=== PATIENT | female | born 1990 | race Caucasian/White ===

== ENCOUNTER → 2023-05-24 | Outpatient (CLI) | payer OTHER ==
[2023-05-24 13:56] VITALS: BP 106/69; PULSE 74; RESP 16; TEMP 98.1
--- NOTE | 2023-05-24 14:18 | P.SLEEP ---
History of Present Illness DATE: 05/24/2023 CONSULTATION/NEW PATIENT EVALUATION HISTORY OF PRESENT ILLNESS/SLEEP-WAKE EVALUATION: 32-year-old person had been evaluated in the sleep center for possible obstructive sleep apnea hypopnea syndrome and significant excessive daytime sleepiness. SLEEP SCHEDULE: Usually sleep schedule 1 AM until 9 AM 7 days a week. FALLING ASLEEP: Patient does have problems with falling asleep, has TV set in bedroom. DURING SLEEP: Patient usually sleeps on the side and back position with loud snoring and awakenings from sleep at least 3-4 times with up to 2 episodes of nocturia. Patient has been told that she bites her fingers during the sleep. No history of hypnogogical hallucinations, sleep paralysis, or cataplexy. DURING THE DAY/WAKE STATE: In the morning patient wake up tired, has difficulties to pay attention, falling asleep during the day, has problems with memory, concentration, irritability. Clements sleepiness scale is significantly increased to 14. Patient takes 1 nap at 1:30 PM. PAST MEDICAL HISTORY: Depression, bipolar. PAST SURGICAL HISTORY: None. MEDICATIONS: Suboxone 8 mg twice a day, Lamictal 150 mg twice a day, Depakote 500 mg twice a day, gabapentin, ibuprofen. SOCIAL HISTORY: Please see below FAMILY HISTORY: Snoring and sleep apnea. REVIEW OF SYSTEMS: Snoring, multiple awakenings from sleep sleepiness during the day. No fevers. No double vision. No recent chest pain. No shortness of breath. No abdominal pain. No bleeding episodes. No blood in urine. No seizure episodes. PHYSICAL EXAMINATION: GENERAL: A pleasant patient without any distress. VITAL SIGNS: Please see below. HEENT: PERRLA, EOMI. Evaluation of oropharynx showed tongue protrudes midline, low position of soft palate Mallampati 3. NECK: Supple. No JVD. Thyroid is not palpable. 14 inches in circumference. LUNGS: Clear to percussion and to auscultation. Good air exchange. No wheezing or rhonchi. HEART: S1, S2 regular. No murmurs, gallops or rubs. ABDOMEN: Soft and nontender. Bowel sounds are present. No organomegaly appreciated. EXTREMITIES: No clubbing or cyanosis. MOVIE CRITIC: Awake, alert, and oriented x3. Cranial nerves 2 to 7 intact. There is no fasciculation or atrophy noted. No focal deficits observed. ASSESSMENT: 1. Loud snoring, multiple awakenings from sleep, low position of soft palate Mallampati 3, sleepiness. Obstructive sleep apnea hypopnea syndrome. 2. Significant excessive daytime sleepiness with Clements Sleepiness Scale 14 dictate necessity to include hypersomnia differential diagnosis. 3. History of depression. 4. History of bipolar. PLAN: 1. Polysomnography for evaluation of patient's breathing during sleep. Multiple sleep latency test if sleep study will be negative for obstructive sleep apnea hypopnea syndrome. 2. Following plan after reading sleep study 3. Preferable position during sleep on the side. 4. No driving if patient feels any sleepiness. Patient is aware of civil and criminal liability for unsafe driving. 5. Sleep hygiene with regular sleep time for at least 7.5-8 hours. Thank you very much for referring this patient for consultation. Sincerely, Dustin Arriaga MD, PhD, FAASM. Diplomat of [employer], Sleep Medicine Board by [employer] [facility] [place] Past Medical History Past Medical History: No Reported History History of Any Multi-Drug Resistant Organisms: None Reported Past Surgical History: No Surgical Hx Reported Past Anesthesia/Blood Transfusion Reactions: No Reported Reaction Past Psychological History: Bipolar, Depression Smoking Status: Former smoker Past Alcohol Use History: None Reported Past Drug Use History: None Reported - Past Family History Father Additional Family Medical History / Comment(s): Apnea, snoring Medications and Allergies Home Medications Medication Instructions Recorded Confirmed Type Buprenorphine-Nalox 8-2 mg Tab 05/24/23 History [Suboxone 8-2 mg Tab] Divalproex ER [Depakote ER] 500 mg PO DAILY 05/24/23 05/24/23 History Gabapentin 800 mg PO 05/24/23 History Ibuprofen 800 mg PO Q8H 05/24/23 05/24/23 History lamoTRIgine [LaMICtal] 150 mg PO 05/24/23 History Physical Exam Vitals: Vital Signs Temp Pulse Resp BP Pulse Ox 05/24/23 13:52 98.1 F 74 16 106/69 100 Intake and Output 05/23/23 05/24/23 05/24/23 22:59 06:59 14:59 Other: Weight 63.503 kg Sleep Note - Sleep Data ESS Total: 14 - Sleep Note Sleep Note: Temperature: 98.1 F Pulse Rate: 74 Respiratory Rate: 16 Blood Pressure: 106/69 SpO2: 100 Height: 5 ft 5 in Weight: 63.503 kg BMI: Neck Circumference: 14
== END ==
LOC: 3 N SLEEP 13:25
PROVIDERS: ATTEND Internal Medicine
DX: G47.33 Obstructive sleep apnea (adult) (pediatric) (principal); G47.10 Hypersomnia, unspecified; F31.9 Bipolar disorder, unspecified
CPT/HCPCS: 99202

== ENCOUNTER 2023-07-09 19:50 | Outpatient (CLI) | payer OTHER ==
[2023-07-11 04:16] LABS: Urine Alcohol Negative (Negative); Urine Barbiturate Negative (Negative); Urine Cocaine Negative (Negative); Urine Methadone Negative (Negative); Urine Opiates Negative (Negative); Urine Phencyclidine Negative (Negative)
--- NOTE | 2023-07-11 14:12 | P.PCN ---
Description of Procedure: POLYSOMNOGRAPHY and MSLT REPORT PROCEDURE(S)/DATE(S): Polysomnography 07/09/2023, multiple sleep latency test 07/10/2023 CLINICAL: Patient has been seen in the sleep center for evaluation of obstructive sleep apnea-hypopnea syndrome. Please see my consultation. Sleep study has been done for evaluation of patient breathing during the sleep. PROCEDURE: The standard montage for clinical polysomnography included the electroencephalogram, the electrooculogram, the mentalis surface elect romyography and Lead II cardiography. The respiratory battery consisted of measurements of nasal/buccal air flow, pressure transducer measurements from nose, thoracic and/or abdominal effort and intercostal surface electromyography. Video monitoring has been done to check for any parasomnia events. Nocturnal oxyhemoglobin saturations were obtained by finger oximetry. Step-portillo titration with positive airway pressure was utilized to control the respiratory events, if necessary. RESULTS: During the diagnostic sleep study sleep efficiency was 91.2%. Latency to sleep onset was slightly short 8.5 min. Sleep architecture showed stage NI was short 1.4%, Delta sleep was normal 17.2%, REM sleep was normal IN high range 28.5%. Respiratory channel showed 5 obstructive apneas, 0 mixed apneas, 2 central apneas, 2 hypopneas with lowest oxygen level 92%. Total apnea hypopnea index was 1.3. Heart rate was in the range between 57 and 70, average 62. EMG showed 0 periodic limb movements per hour with 0 micro-arousals per hour. Multiple sleep latency test treatment done on the following day, consisted from 5 naps. Mean sleep latency was 4.6 minutes. IMPRESSIONS: 1. No significant respiratory abnormalities have been documented during the sleep study, normal oxygenation during sleep. 2. No significant periodic limb movements have been documented. 3. Multiple sleep latency test confirmed pathological sleepiness with sleep onset REM periods, which consistent with diagnosis of narcolepsy. Please see other impressions from consultation PLAN: 1. I will see patient for follow-up visit to explain results of the test and recommendations. 2. Daytime naps permitted. 3. Sleep hygiene with regular time in bed for at least 7-1/2 hours. 4. No driving if feeling sleepiness. 5. Patient will be started on medication to prevent excessive sleepiness. Thank you very much for allowing me to participate in the management of your patient. Sincerely, Dustin Arriaga MD, PhD, FAASM. Diplomat of [employer], Sleep Medicine Board by [employer] [facility] [place]
== END 2023-07-10 17:10 | disposition home or self-care (01) ==
LOC: 3 N SLEEP 19:50
PROVIDERS: ATTEND Internal Medicine
DX: G47.10 Hypersomnia, unspecified (principal); G47.52 REM sleep behavior disorder; G47.419 Narcolepsy without cataplexy
CPT/HCPCS: 80306; 95805; 95810